=== PATIENT | female | born 1965 | race Caucasian/White ===

== ENCOUNTER → 2016-09-30 | Outpatient (CLI) | payer BC ==
[~2016-09-30] MED LIST: CARISOPRODOL250 MG PO; CLEOCIN300 MG PO; CLONIDINE HCL0.1 MG PO; CLONIDINE HCL0.2 MG PO; CYCLOBENZAPRINE10 M1 PO; FLEXERIL10 MG PO; LEVO-T50 MCG PO; LEVO-T75 MCG PO; LEVOTHROID,S0.112 MG PO; LIPITOR20 MG PO; MIRAPEX0.5 MG PO; MIRAPEX0.75 MG PO; MULTI-DAY VITA1 EACH PO; NUCYNTA50 MG PO; PREDNISONE20 M1 PO; ROCEPHIN1000 MG IM; SERTRALINE HCL100 MG PO; SYNTHROID50 MCG PO; VICODIN,LORT1 TABLET PO; VITAMIN B-6100 MG PO; VITAMIN B12 100MCG PO; VYTORIN 10-201 EACH PO; VYTORIN 10-401 EACH PO; VYTORIN 10/11 TABLET PO; ZOLOFT100 M1 PO; ZOLOFT25 MG PO; [UNRECOGNIZED DRUG - OTHER]
== END | disposition home or self-care (01) ==
LOC: AMB 12:53
DX: M51.26 Other intervertebral disc displacement, lumbar region (principal); M48.06 Spinal stenosis, lumbar region
CPT/HCPCS: 62304; 72132

== ENCOUNTER 2017-01-04 19:50 | Emergency (ER) | payer BC ==
[~2017-01-04] VITALS: Ht 170.2 cm; Wt 94.4 kg
[2017-01-04] MEDS ORDERED: SKELAXIN800 MG PO (21:48)
[2017-01-04] MEDS ORDERED: PERCOCET 5/31 TABLET PO (21:48)
[2017-01-04] MEDS ORDERED: AMOXICILLIN875 MG PO (21:51)
[2017-01-04 21:58] VITALS: BP 150/101
== END 2017-01-04 21:59 | disposition home or self-care (01) ==
LOC: EME 19:50
DX: S93.402A Sprain of unspecified ligament of left ankle, initial encounter (principal); S09.90XA Unspecified injury of head, initial encounter; S16.1XXA Strain of muscle, fascia and tendon at neck level, initial encounter; W18.30XA Fall on same level, unspecified, initial encounter; Y93.H9 Activity, other involving exterior property and land maintenance, building and construction; J01.00 Acute maxillary sinusitis, unspecified; Z98.1 Arthrodesis status; F32.9 Major depressive disorder, single episode, unspecified; E78.5 Hyperlipidemia, unspecified; I10 Essential (primary) hypertension; E03.9 Hypothyroidism, unspecified; G25.81 Restless legs syndrome; F17.200 Nicotine dependence, unspecified, uncomplicated
CPT/HCPCS: 70450; 72100; 72125; 73610; 99281; 99284

== ENCOUNTER → 2017-05-09 | Outpatient (CLI) | payer BC ==
[~2017-05-09] MED LIST changes: +AMOXICILLIN875 MG PO; +PERCOCET 5/31 TABLET PO; +SKELAXIN800 MG PO
== END | disposition home or self-care (01) ==
LOC: CDC 12:14
DX: M25.562 Pain in left knee (principal); S83.232A Complex tear of medial meniscus, current injury, left knee, initial encounter; M17.12 Unilateral primary osteoarthritis, left knee; M21.162 Varus deformity, not elsewhere classified, left knee; F17.218 Nicotine dependence, cigarettes, with other nicotine-induced disorders
CPT/HCPCS: 93000